=== PATIENT | female | born 1995 | race Caucasian/White ===

== ENCOUNTER 2016-08-11 15:40 | Emergency (ER) | payer OTHER ==
[2016-08-11] MEDS ORDERED: IBUPROFEN 600 MG TAB As Ordered ONE (18:19)
--- NOTE | 2016-08-11 19:49 | EDDOCDS ---
Nurse's Notes [facility] Name: Makenna Landno Age: 20 yrs Sex: Female : 1995 Arrival Date: 08/11/2016 Time: 15:40 Bed PR Private MD: Savita Frazier [facility] Diagnosis: Fever, unspecified;Acute pharyngitis Presentation: 08/11 15:44 Presenting complaint: Patient states: sore throat and fever x 2 days. Adult Sepsis [facility] Screening: The patient does not have new or worsening altered mentation. Patient's respiratory rate is less than 22. Systolic blood pressure is greater than 100. Patient has a qSOFA score of 0- Negative Sepsis Screen. Suicide/Homicide risk assessment- the patient denies having any suicidal and/or homicidal ideations and does not present with any other emotional, behavioral or mental health complaints. Status: The patient is a dependent. Transition of care: patient was not received from another setting of care. 15:44 Acuity: HOLLIS Level 4 [facility] 15:44 Method Of Arrival: Walkin/Carried/Asstd [facility] Triage Assessment: 15:46 General: Appears uncomfortable, Behavior is appropriate for age, pleasant. Pain: [facility] Location: throat Pain currently is 4 out of 10 on a pain scale. Pt Declines HIV testing. Neurological: Level of Consciousness is awake, alert, Oriented to person, place, time. EENT: Reports pain when swallowing Pain is 4 out of 10 on a pain scale. Respiratory: Airway is patent Respiratory effort is even, unlabored, Respiratory pattern is regular, symmetrical. Derm: Skin is pink, warm & dry. Musculoskeletal: Reports generalized body aches. 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 Garcinia Cambogia 200-500 mcg-mg oral tab twice a day (Last dose: 08/11/2016 11:00) - PMHx: none; - PSHx: none; - Social history: Smoking status: Patient states was never smoker of tobacco. No barriers to communication noted, The patient speaks fluent Japanese. - Family history: Not pertinent. - : The pt / caregiver states he / she is not on anticoagulants. Home medication list is obtained from the patient. - Exposure Risk Screening:: None identified. Screenin:47 Screening information is obtained from the patient. Fall risk: No risks identified. jo3 Assistance ADL's: requires no assistance with activities of daily living. Abuse/DV Screen: The patient / caregiver reports he/she is: not in a situation that causes fear, pain or injury. Nutritional screening: No deficits noted. Advance Directives: There is no active DNR order. home support is adequate. Assessment: 18:25 Adult Sepsis Screening: The patient does not have new or worsening altered mentation. dsf Patient's respiratory rate is less than 22. Systolic blood pressure is greater than 100. Patient has a qSOFA score of 0- Negative Sepsis Screen. General: Appears in no apparent distress, Behavior is appropriate for age. Pain: Location: throat. Neurological: Level of Consciousness is awake, alert. Cardiovascular: Capillary refill < 3 seconds. Respiratory: Airway is patent Respiratory effort is even, unlabored, Respiratory pattern is regular, symmetrical. Derm: Skin is pink, warm & dry. 19:47 General: Appears in no apparent distress, comfortable, Behavior is appropriate for age, jo3 cooperative. Neurological: Level of Consciousness is awake, alert, Oriented to person, place, time. Respiratory: No deficits noted. Airway is patent Respiratory effort is even, unlabored. Derm: Skin is pink, warm & dry. Vital Signs: 15:42 BP 108 / 71; Pulse 115; Resp 18 S; Temp 98.1(O); Pulse Ox 97% on R/A; Weight 68.04 kg gr2 (R); Height 5 ft. 4 in. (162.56 cm) (R); Pain 4/10; 18:28 BP 123 / 67; Pulse 113; Resp 18; Temp 100.4(TE); Pulse Ox 99% on R/A; Pain 0/10; mdr 19:42 BP 112 / 73; Pulse 93; Resp 18; Temp 97.8(TE); Pulse Ox 98% on R/A; Pain 0/10; mdr 15:42 Body Mass Index 25.75 (68.04 kg, 162.56 cm) gr2 Vitals: 15:42 Log In Time: August 11, 2016 at 15:42. gr2 16:41 Strep Screen is obtained and tested: Negative, a GATSNEG culture is ordered in [facility] and sent. ED Course: 15:42 Patient visited by Luis Enrique Wynne. gr2 15:42 [facility] is Private Physician. gr2 15:42 Patient moved to Waiting gr2 15:43 Patient visited by Luis Enrique Wynne. gr2 15:43 Patient moved to Pre RCE gr2 15:45 Triage Initiated kpj 17:43 Patient moved to Triage 3 mdr 18:03 [facility] ck7 18:03 Maryanne Hampton MD is Attending Physician. ck7 18:03 Patient visited by Eloy Thomas RPA-C. ck7 18:16 Patient moved to PR2 / dsf 18:25 -Influenza A&B Rapid Antigen - Nose Sent. dsf 18:26 Patient visited by Andreea Perez RN. dsf 18:28 Patient visited by Cornelius Sarkar PCA. mdr 19:00 Patient visited by Eloy Thomas RPA-C. ck7 19:02 [facility] Payment Agreement was scanned into [employer] and attached to record. gjb 19:33 Patient visited by Eloy Thomas RPA-C. ck7 19:42 [facility] is Referral Physician. ck7 19:43 Patient visited by Cornelius Sarkar PCA. mdr 19:47 The patient / caregiver is instructed regarding the plan of care and ED course. jo3 19:47 No IV's were initiated during this patient's visit. No procedures done that require jo3 assistance. Administered Medications: 18:25 Drug: Ibuprofen 600 mg [ibuprofen 600 mg tablet (1 tabs)] Route: PO; dsf Order Results: Lab Order: -Influenza A&B Rapid Antigen - Nose; SPEC'M 08/11/16 18:23 Test: INFLUENZA A RAPID SCR by ICA; Value: INFLUENZA A RESULTS NEGATIVE; Status: F Test: INFLUENZA A RAPID SCR by ICA; Value: Comments:; Status: F Test: INFLUENZA B RAPID SCR by ICA; Value: INFLUENZA B RESULTS NEGATIVE; Status: F Test Note: ; The Influenza test is a direct rapid immunoassay for the qualitative detection of Influenza viral antigen. Cell culture (Viral Culture) testing should be considered to confirm NEGATIVE results and to assist in detecting other viruses that can provide similar clinical symptoms. Please contact the lab within 24 hours ([phone]) if confirmatory testing is desired. Outcome: 19:42 Discharge ordered by Provider. ck7 19:47 Discharge Assessment: Patient awake, alert and oriented x 3. No cognitive and/or jo3 functional deficits noted. Patient verbalized understanding of disposition instructions. patient administered narcotics - no. The following High Risk Discharge criteria are identified: None. Discharged to home ambulatory, with significant other. Condition: stable Condition: improved. Discharge instructions given to patient, Instructed on discharge instructions, follow up and referral plans. medication usage, Demonstrated understanding of instructions, medications, Pt was receptive of discharge instructions/ teaching. Work note provided to patient. No special radiology studies were completed. Property sent home with patient. 19:49 Patient left the ED. jo3 Signatures: Heather Jha, RN RN Shellie Cuevas,RN RN jo3 Andreea Perez,RN RN dsf Eloy Thomas, RPA-C RPA-Cck7 Luis Enrique Wynne gr2 Cornelius Sarkar, MATT FUSION OPERATOR Lizbeth Zee MTDD
--- NOTE | 2016-08-11 19:49 | EDDOCDS ---
Physician Documentation [facility] Name: Makenna Landon Age: 20 yrs Sex: Female : 1995 Arrival Date: 08/11/2016 Time: 15:40 Bed PR Private MD: Savita Frazier, [facility] Disposition: 08/11/16 19:42 Discharged to Home/Self Care. Impression: Fever, unspecified, Acute pharyngitis. - Condition is Stable. - Discharge Instructions: Fever, Adult, Pharyngitis, Salt Water Gargle. - Prescriptions for Ibuprofen 600 mg Oral Tablet - take 1 tablet by ORAL route every 6 hours As needed take with food; 30 tablet. - Work Release Form - 2 day, Medication Reconciliation, Local Pharmacy Hours form. - Follow up: [facility] Savita Frazier; When: 2 - 3 days; Reason: Recheck today's complaints, Continuance of care. - Problem is new. - Symptoms have improved. - Notes: USE MOTRIN AND TYLENOL NEEDED FOR PAIN AND FEVER CONTROL, FOLLOW UP WITH YOUR DOCTOR IN 1-2 DAYS, RETURN TO THE ER IF THE SYMPTOMS WORSEN OR BECOME CONCERNING Historical: - Allergies: No known drug Allergies; - Home Meds: 1. Garcinia Cambogia 200-500 mcg-mg oral tab twice a day (Last dose: 08/11/2016 11:00) - PMHx: none; - PSHx: none; - Social history: Smoking status: Patient states was never smoker of tobacco. No barriers to communication noted, The patient speaks fluent Kenyan. - Family history: Not pertinent. - : The pt / caregiver states he / she is not on anticoagulants. Home medication list is obtained from the patient. - Exposure Risk Screening:: None identified. 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 4 in. (162.56 cm) (R); Pain 4/10; 18:28 BP 123 / 67; Pulse 113; Resp 18; Temp 100.4(TE); Pulse Ox 99% on R/A; Pain 0/10; mdr 19:42 BP 112 / 73; Pulse 93; Resp 18; Temp 97.8(TE); Pulse Ox 98% on R/A; Pain 0/10; mdr 15:42 Body Mass Index 25.75 (68.04 kg, 162.56 cm) gr2 MDM: 16:05 Strep Screen, Nursing ordered. dt4 16:42 GATS (NEGATIVE STREP SCREEN) Ordered. EDMS 18:10 Ibuprofen 600 mg PO once ordered. ck7 18:10 Obtain sample by nasopharyngeal swab ordered. ck7 18:10 Recheck Vital Signs, perform reassessment and enter into [employer] ordered. ck7 18:11 -Influenza A&B Rapid Antigen - Nose Ordered. EDMS 18:58 Financial registration complete. gjb 19:02 [facility] Payment Agreement was scanned into [employer] and attached to record. gjb 19:14 -Influenza A&B Rapid Antigen - Nose Reviewed. ck7 19:21 Recheck Vital Signs, perform reassessment and enter into [employer] ordered. ck7 Administered Medications: 18:25 Drug: Ibuprofen 600 mg [ibuprofen 600 mg tablet (1 tabs)] Route: PO; dsf Signatures: Dispatcher [employer] EDAR Heather Jha RN RN Shellie Cuevas,RN RN joEloy Escobar, RPA-C RPA-Cck7 Deepthi Moreau PA-C PALizbeth Oconnor Desiree RN dsf The chart was reviewed and I authenticate all verbal orders and agree with the evaluation and treatment provided.Attachments: 19:02 [facility] Payment Agreement [facility] MTDD
[2016-08-12] MEDS ORDERED: METAL LOCK LOOP XX ONE ×2 (05:07→05:53)
--- NOTE | 2016-08-13 20:50 | EDDOCDS ---
Physician Documentation [facility] Name: Makenna Landon Age: 20 yrs Sex: Female : 1995 Arrival Date: 08/11/2016 Time: 15:40 Bed PR Private MD: Savita Frazier, [facility] Disposition: 08/11/16 19:42 Discharged to Home/Self Care. Impression: Fever, unspecified, Acute pharyngitis. - Condition is Stable. - Discharge Instructions: Fever, Adult, Pharyngitis, Salt Water Gargle. - Prescriptions for Ibuprofen 600 mg Oral Tablet - take 1 tablet by ORAL route every 6 hours As needed take with food; 30 tablet. - Work Release Form - 2 day, Medication Reconciliation, Local Pharmacy Hours form. - Follow up: [facility] Savita Frazier; When: 2 - 3 days; Reason: Recheck today's complaints, Continuance of care. - Problem is new. - Symptoms have improved. - Notes: USE MOTRIN AND TYLENOL NEEDED FOR PAIN AND FEVER CONTROL, FOLLOW UP WITH YOUR DOCTOR IN 1-2 DAYS, RETURN TO THE ER IF THE SYMPTOMS WORSEN OR BECOME CONCERNING Historical: - Allergies: No known drug Allergies; - Home Meds: 1. Garcinia Cambogia 200-500 mcg-mg oral tab twice a day (Last dose: 08/11/2016 11:00) - PMHx: none; - PSHx: none; - Social history: Smoking status: Patient states was never smoker of tobacco. No barriers to communication noted, The patient speaks fluent Montserratian. - Family history: Not pertinent. - : The pt / caregiver states he / she is not on anticoagulants. Home medication list is obtained from the patient. - Exposure Risk Screening:: None identified. 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 4 in. (162.56 cm) (R); Pain 4/10; 18:28 BP 123 / 67; Pulse 113; Resp 18; Temp 100.4(TE); Pulse Ox 99% on R/A; Pain 0/10; mdr 19:42 BP 112 / 73; Pulse 93; Resp 18; Temp 97.8(TE); Pulse Ox 98% on R/A; Pain 0/10; mdr 15:42 Body Mass Index 25.75 (68.04 kg, 162.56 cm) gr2 MDM: 16:05 Strep Screen, Nursing ordered. dt4 16:42 GATS (NEGATIVE STREP SCREEN) Ordered. EDMS 18:10 Ibuprofen 600 mg PO once ordered. ck7 18:10 Obtain sample by nasopharyngeal swab ordered. ck7 18:10 Recheck Vital Signs, perform reassessment and enter into MedHost ordered. ck7 18:11 -Influenza A&B Rapid Antigen - Nose Ordered. EDMS 18:58 Financial registration complete. [facility] : [facility] Payment Agreement was scanned into [employer] and attached to record. gjb 19:14 -Influenza A&B Rapid Antigen - Nose Reviewed. ck7 19:21 Recheck Vital Signs, perform reassessment and enter into MedHost ordered. ck7 08/12 09:51 T-Sheet-- Draft Copy was scanned into [employer] and attached to record. gb Administered Medications: 08/11 18:25 Drug: Ibuprofen 600 mg [ibuprofen 600 mg tablet (1 tabs)] Route: PO; dsf Signatures: Dispatcher MedHost EDHeather Yañez, ORIN RN Na Lau, Tonny Reg Shellie Reece RN RN jo3 Kwaczala, Christopher, RPA-C RPA-Deepthi Cote PA-C PAUziel dt4 Lizbeth Vega Andreea Gonzalez RN dsf The chart was reviewed and I authenticate all verbal orders and agree with the evaluation and treatment provided.Attachments: : [facility] Payment Agreement [facility] 08/12 09:51 T-Sheet-- Draft Copy gb Chart Complete MTDD
--- NOTE | 2016-08-13 20:50 | EDDOCDS ---
Nurse's Notes [facility] Name: Makenna Landon Age: 20 yrs Sex: Female : 1995 Arrival Date: 08/11/2016 Time: 15:40 Bed PR Private MD: Savita Frazier [facility] Diagnosis: Fever, unspecified;Acute pharyngitis Presentation: 08/11 15:44 Presenting complaint: Patient states: sore throat and fever x 2 days. Adult Sepsis [facility] Screening: The patient does not have new or worsening altered mentation. Patient's respiratory rate is less than 22. Systolic blood pressure is greater than 100. Patient has a qSOFA score of 0- Negative Sepsis Screen. Suicide/Homicide risk assessment- the patient denies having any suicidal and/or homicidal ideations and does not present with any other emotional, behavioral or mental health complaints. Status: The patient is a dependent. Transition of care: patient was not received from another setting of care. 15:44 Acuity: HOLLIS Level 4 [facility] 15:44 Method Of Arrival: Walkin/Carried/Asstd [facility] Triage Assessment: 15:46 General: Appears uncomfortable, Behavior is appropriate for age, pleasant. Pain: [facility] Location: throat Pain currently is 4 out of 10 on a pain scale. Pt Declines HIV testing. Neurological: Level of Consciousness is awake, alert, Oriented to person, place, time. EENT: Reports pain when swallowing Pain is 4 out of 10 on a pain scale. Respiratory: Airway is patent Respiratory effort is even, unlabored, Respiratory pattern is regular, symmetrical. Derm: Skin is pink, warm & dry. Musculoskeletal: Reports generalized body aches. 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 Garcinia Cambogia 200-500 mcg-mg oral tab twice a day (Last dose: 08/11/2016 11:00) - PMHx: none; - PSHx: none; - Social history: Smoking status: Patient states was never smoker of tobacco. No barriers to communication noted, The patient speaks fluent Azerbaijani. - Family history: Not pertinent. - : The pt / caregiver states he / she is not on anticoagulants. Home medication list is obtained from the patient. - Exposure Risk Screening:: None identified. Screenin:47 Screening information is obtained from the patient. Fall risk: No risks identified. jo3 Assistance ADL's: requires no assistance with activities of daily living. Abuse/DV Screen: The patient / caregiver reports he/she is: not in a situation that causes fear, pain or injury. Nutritional screening: No deficits noted. Advance Directives: There is no active DNR order. home support is adequate. Assessment: 18:25 Adult Sepsis Screening: The patient does not have new or worsening altered mentation. dsf Patient's respiratory rate is less than 22. Systolic blood pressure is greater than 100. Patient has a qSOFA score of 0- Negative Sepsis Screen. General: Appears in no apparent distress, Behavior is appropriate for age. Pain: Location: throat. Neurological: Level of Consciousness is awake, alert. Cardiovascular: Capillary refill < 3 seconds. Respiratory: Airway is patent Respiratory effort is even, unlabored, Respiratory pattern is regular, symmetrical. Derm: Skin is pink, warm & dry. 19:47 General: Appears in no apparent distress, comfortable, Behavior is appropriate for age, jo3 cooperative. Neurological: Level of Consciousness is awake, alert, Oriented to person, place, time. Respiratory: No deficits noted. Airway is patent Respiratory effort is even, unlabored. Derm: Skin is pink, warm & dry. Vital Signs: 15:42 BP 108 / 71; Pulse 115; Resp 18 S; Temp 98.1(O); Pulse Ox 97% on R/A; Weight 68.04 kg gr2 (R); Height 5 ft. 4 in. (162.56 cm) (R); Pain 4/10; 18:28 BP 123 / 67; Pulse 113; Resp 18; Temp 100.4(TE); Pulse Ox 99% on R/A; Pain 0/10; mdr 19:42 BP 112 / 73; Pulse 93; Resp 18; Temp 97.8(TE); Pulse Ox 98% on R/A; Pain 0/10; mdr 15:42 Body Mass Index 25.75 (68.04 kg, 162.56 cm) gr2 Vitals: 15:42 Log In Time: August 11, 2016 at 15:42. gr2 16:41 Strep Screen is obtained and tested: Negative, a GATSNEG culture is ordered in [facility] and sent. ED Course: 15:42 Patient visited by Luis Enrique Wynne. gr2 15:42 [facility] is Private Physician. gr2 15:42 Patient moved to Waiting gr2 15:43 Patient visited by Luis Enrique Wynne. gr2 15:43 Patient moved to Pre RCE gr2 15:45 Triage Initiated kpj 17:43 Patient moved to Triage 3 mdr 18:03 [facility] ck7 18:03 Maryanne Hampton MD is Attending Physician. ck7 18:03 Patient visited by Eloy Thomas RPA-C. ck7 18:16 Patient moved to PR2 / 26 dsf 18:25 -Influenza A&B Rapid Antigen - Nose Sent. dsf 18:26 Patient visited by Andreea Perez RN. dsf 18:28 Patient visited by Cornelius Sarkar PCA. mdr 19:00 Patient visited by Eloy Thomas RPA-C. ck7 19:02 [facility] Payment Agreement was scanned into [employer] and attached to record. gjb 19:33 Patient visited by Eloy Thomas RPA-C. ck7 19:42 [facility] is Referral Physician. ck7 19:43 Patient visited by Cornelius Sarkar PCA. mdr 19:47 The patient / caregiver is instructed regarding the plan of care and ED course. jo3 19:47 No IV's were initiated during this patient's visit. No procedures done that require jo3 assistance. 08/12 09:51 T-Sheet-- Draft Copy was scanned into [employer] and attached to record. gb Administered Medications: 08/11 18:25 Drug: Ibuprofen 600 mg [ibuprofen 600 mg tablet (1 tabs)] Route: PO; dsf Order Results: Lab Order: GATS (NEGATIVE STREP SCREEN); SPEC'M 08/11/16 16:35 Test: GATS CULTURE (NEG STREP SCR); Value: GATS RESULT NEGATIVE FOR STREP PYOGENES (GROUP A); Status: F Test: GATS CULTURE (NEG STREP SCR); Value: <EXTERNAL COMMENT eCWMed> FULL REPORT IN LAB NOTES (eCW and Medent).; Status: F Test: GATS CULTURE (NEG STREP SCR); Value: ORGANISM 1: STREP AGALACTIAE GROUP B; Status: F Test: GATS CULTURE (NEG STREP SCR); Value: STREP AGALACTIAE GROUP B; Status: F Test: GATS CULTURE (NEG STREP SCR); Value: QUANTITY OF GROWTH MODERATE; Status: F Lab Order: -Influenza A&B Rapid Antigen - Nose; SPEC'M 08/11/16 18:23 Test: INFLUENZA A RAPID SCR by ICA; Value: INFLUENZA A RESULTS NEGATIVE; Status: F Test: INFLUENZA A RAPID SCR by ICA; Value: Comments:; Status: F Test: INFLUENZA B RAPID SCR by ICA; Value: INFLUENZA B RESULTS NEGATIVE; Status: F Test Note: ; The Influenza test is a direct rapid immunoassay for the qualitative detection of Influenza viral antigen. Cell culture (Viral Culture) testing should be considered to confirm NEGATIVE results and to assist in detecting other viruses that can provide similar clinical symptoms. Please contact the lab within 24 hours ([phone]) if confirmatory testing is desired. Outcome: 19:42 Discharge ordered by Provider. ck7 19:47 Discharge Assessment: Patient awake, alert and oriented x 3. No cognitive and/or jo3 functional deficits noted. Patient verbalized understanding of disposition instructions. patient administered narcotics - no. The following High Risk Discharge criteria are identified: None. Discharged to home ambulatory, with significant other. Condition: stable Condition: improved. Discharge instructions given to patient, Instructed on discharge instructions, follow up and referral plans. medication usage, Demonstrated understanding of instructions, medications, Pt was receptive of discharge instructions/ teaching. Work note provided to patient. No special radiology studies were completed. Property sent home with patient. 19:49 Patient left the ED. jo3 Signatures: Heather Jha, ORIN RN Na Lau, Reg Reg Shellie Reece RN RN Andreea Lopes,RN RN Eloy Pacheco, RPA-C RPA-Cck7 Luis Enrique Wynne2 Cornelius Sarkar, MATT PSYCHOLOGIST [facility]IVATE PRACTICE Lizbeth Zee Chart Complete MTDD
--- NOTE | 2016-08-13 20:50 | EDDOCDS ---
Physician Documentation [facility] Name: Makenna Landon Age: 20 yrs Sex: Female : 1995 Arrival Date: 08/11/2016 Time: 15:40 Bed PR Private MD: Savita Frazier, [facility] Disposition: 08/11/16 19:42 Discharged to Home/Self Care. Impression: Fever, unspecified, Acute pharyngitis. - Condition is Stable. - Discharge Instructions: Fever, Adult, Pharyngitis, Salt Water Gargle. - Prescriptions for Ibuprofen 600 mg Oral Tablet - take 1 tablet by ORAL route every 6 hours As needed take with food; 30 tablet. - Work Release Form - 2 day, Medication Reconciliation, Local Pharmacy Hours form. - Follow up: [facility] Savita Frazier; When: 2 - 3 days; Reason: Recheck today's complaints, Continuance of care. - Problem is new. - Symptoms have improved. - Notes: USE MOTRIN AND TYLENOL NEEDED FOR PAIN AND FEVER CONTROL, FOLLOW UP WITH YOUR DOCTOR IN 1-2 DAYS, RETURN TO THE ER IF THE SYMPTOMS WORSEN OR BECOME CONCERNING Historical: - Allergies: No known drug Allergies; - Home Meds: 1. Garcinia Cambogia 200-500 mcg-mg oral tab twice a day (Last dose: 08/11/2016 11:00) - PMHx: none; - PSHx: none; - Social history: Smoking status: Patient states was never smoker of tobacco. No barriers to communication noted, The patient speaks fluent Tongan. - Family history: Not pertinent. - : The pt / caregiver states he / she is not on anticoagulants. Home medication list is obtained from the patient. - Exposure Risk Screening:: None identified. 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 4 in. (162.56 cm) (R); Pain 4/10; 18:28 BP 123 / 67; Pulse 113; Resp 18; Temp 100.4(TE); Pulse Ox 99% on R/A; Pain 0/10; mdr 19:42 BP 112 / 73; Pulse 93; Resp 18; Temp 97.8(TE); Pulse Ox 98% on R/A; Pain 0/10; mdr 15:42 Body Mass Index 25.75 (68.04 kg, 162.56 cm) gr2 MDM: 16:05 Strep Screen, Nursing ordered. dt4 16:42 GATS (NEGATIVE STREP SCREEN) Ordered. EDMS 18:10 Ibuprofen 600 mg PO once ordered. ck7 18:10 Obtain sample by nasopharyngeal swab ordered. ck7 18:10 Recheck Vital Signs, perform reassessment and enter into MedHost ordered. ck7 18:11 -Influenza A&B Rapid Antigen - Nose Ordered. EDMS 18:58 Financial registration complete. [facility] : [facility] Payment Agreement was scanned into [employer] and attached to record. gjb 19:14 -Influenza A&B Rapid Antigen - Nose Reviewed. ck7 19:21 Recheck Vital Signs, perform reassessment and enter into MedHost ordered. ck7 08/12 09:51 T-Sheet-- Draft Copy was scanned into [employer] and attached to record. gb Administered Medications: 08/11 18:25 Drug: Ibuprofen 600 mg [ibuprofen 600 mg tablet (1 tabs)] Route: PO; dsf Signatures: Dispatcher MedHost EDHeather Yañez, ORIN RN Na Lau, Tonny Reg Shellie Reece RN RN jo3 Kwaczala, Christopher, RPA-C RPA-Deepthi Cote PA-C PAUziel dt4 Lizbeth Vega Andreea Gonzalez RN dsf The chart was reviewed and I authenticate all verbal orders and agree with the evaluation and treatment provided.Attachments: : [facility] Payment Agreement [facility] 08/12 09:51 T-Sheet-- Draft Copy gb Chart Complete MTDD
--- NOTE | 2016-08-14 17:36 | EDDOCDS ---
Physician Documentation [facility] Name: Makenna Landon Age: 20 yrs Sex: Female : 1995 Arrival Date: 08/11/2016 Time: 15:40 Bed PR Private MD: Savita Frazier, [facility] Disposition: 08/11/16 19:42 Discharged to Home/Self Care. Impression: Fever, unspecified, Acute pharyngitis. - Condition is Stable. - Discharge Instructions: Fever, Adult, Pharyngitis, Salt Water Gargle. - Prescriptions for Ibuprofen 600 mg Oral Tablet - take 1 tablet by ORAL route every 6 hours As needed take with food; 30 tablet. - Work Release Form - 2 day, Medication Reconciliation, Local Pharmacy Hours form. - Follow up: [facility] Savita Frazier; When: 2 - 3 days; Reason: Recheck today's complaints, Continuance of care. - Problem is new. - Symptoms have improved. - Notes: USE MOTRIN AND TYLENOL NEEDED FOR PAIN AND FEVER CONTROL, FOLLOW UP WITH YOUR DOCTOR IN 1-2 DAYS, RETURN TO THE ER IF THE SYMPTOMS WORSEN OR BECOME CONCERNING Historical: - Allergies: No known drug Allergies; - Home Meds: 1. Garcinia Cambogia 200-500 mcg-mg oral tab twice a day (Last dose: 08/11/2016 11:00) - PMHx: none; - PSHx: none; - Social history: Smoking status: Patient states was never smoker of tobacco. No barriers to communication noted, The patient speaks fluent Moroccan. - Family history: Not pertinent. - : The pt / caregiver states he / she is not on anticoagulants. Home medication list is obtained from the patient. - Exposure Risk Screening:: None identified. 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 4 in. (162.56 cm) (R); Pain 4/10; 18:28 BP 123 / 67; Pulse 113; Resp 18; Temp 100.4(TE); Pulse Ox 99% on R/A; Pain 0/10; mdr 19:42 BP 112 / 73; Pulse 93; Resp 18; Temp 97.8(TE); Pulse Ox 98% on R/A; Pain 0/10; mdr 15:42 Body Mass Index 25.75 (68.04 kg, 162.56 cm) gr2 MDM: 16:05 Strep Screen, Nursing ordered. dt4 16:42 GATS (NEGATIVE STREP SCREEN) Ordered. EDMS 18:10 Ibuprofen 600 mg PO once ordered. ck7 18:10 Obtain sample by nasopharyngeal swab ordered. ck7 18:10 Recheck Vital Signs, perform reassessment and enter into MedHost ordered. ck7 18:11 -Influenza A&B Rapid Antigen - Nose Ordered. EDMS 18:58 Financial registration complete. [facility] : [facility] Payment Agreement was scanned into [employer] and attached to record. gjb 19:14 -Influenza A&B Rapid Antigen - Nose Reviewed. ck7 19:21 Recheck Vital Signs, perform reassessment and enter into MedHost ordered. ck7 08/12 09:51 T-Sheet-- Draft Copy was scanned into [employer] and attached to record. gb Administered Medications: 08/11 18:25 Drug: Ibuprofen 600 mg [ibuprofen 600 mg tablet (1 tabs)] Route: PO; dsf Signatures: Dispatcher MedHost EDHeather Yañez, ORIN RN Na Lau, Tonny Reg Shellie Reece RN RN jo3 Kwaczala, Christopher, RPA-C RPA-Deepthi Cote PA-C PAUziel dt4 Lizbeth Vega Andreea Gonzalez RN dsf The chart was reviewed and I authenticate all verbal orders and agree with the evaluation and treatment provided.Attachments: : [facility] Payment Agreement [facility] 08/12 09:51 T-Sheet-- Draft Copy gb Chart Complete MTDD
--- NOTE | 2016-08-14 17:36 | EDDOCDS ---
Nurse's Notes [facility] Name: Makenna Landon Age: 20 yrs Sex: Female : 1995 Arrival Date: 08/11/2016 Time: 15:40 Bed PR Private MD: Savita Frazier [facility] Diagnosis: Fever, unspecified;Acute pharyngitis Presentation: 08/11 15:44 Presenting complaint: Patient states: sore throat and fever x 2 days. Adult Sepsis [facility] Screening: The patient does not have new or worsening altered mentation. Patient's respiratory rate is less than 22. Systolic blood pressure is greater than 100. Patient has a qSOFA score of 0- Negative Sepsis Screen. Suicide/Homicide risk assessment- the patient denies having any suicidal and/or homicidal ideations and does not present with any other emotional, behavioral or mental health complaints. Status: The patient is a dependent. Transition of care: patient was not received from another setting of care. 15:44 Acuity: HOLLIS Level 4 [facility] 15:44 Method Of Arrival: Walkin/Carried/Asstd [facility] Triage Assessment: 15:46 General: Appears uncomfortable, Behavior is appropriate for age, pleasant. Pain: [facility] Location: throat Pain currently is 4 out of 10 on a pain scale. Pt Declines HIV testing. Neurological: Level of Consciousness is awake, alert, Oriented to person, place, time. EENT: Reports pain when swallowing Pain is 4 out of 10 on a pain scale. Respiratory: Airway is patent Respiratory effort is even, unlabored, Respiratory pattern is regular, symmetrical. Derm: Skin is pink, warm & dry. Musculoskeletal: Reports generalized body aches. 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 Garcinia Cambogia 200-500 mcg-mg oral tab twice a day (Last dose: 08/11/2016 11:00) - PMHx: none; - PSHx: none; - Social history: Smoking status: Patient states was never smoker of tobacco. No barriers to communication noted, The patient speaks fluent [place]. - Family history: Not pertinent. - : The pt / caregiver states he / she is not on anticoagulants. Home medication list is obtained from the patient. - Exposure Risk Screening:: None identified. Screenin:47 Screening information is obtained from the patient. Fall risk: No risks identified. jo3 Assistance ADL's: requires no assistance with activities of daily living. Abuse/DV Screen: The patient / caregiver reports he/she is: not in a situation that causes fear, pain or injury. Nutritional screening: No deficits noted. Advance Directives: There is no active DNR order. home support is adequate. Assessment: 18:25 Adult Sepsis Screening: The patient does not have new or worsening altered mentation. dsf Patient's respiratory rate is less than 22. Systolic blood pressure is greater than 100. Patient has a qSOFA score of 0- Negative Sepsis Screen. General: Appears in no apparent distress, Behavior is appropriate for age. Pain: Location: throat. Neurological: Level of Consciousness is awake, alert. Cardiovascular: Capillary refill < 3 seconds. Respiratory: Airway is patent Respiratory effort is even, unlabored, Respiratory pattern is regular, symmetrical. Derm: Skin is pink, warm & dry. 19:47 General: Appears in no apparent distress, comfortable, Behavior is appropriate for age, jo3 cooperative. Neurological: Level of Consciousness is awake, alert, Oriented to person, place, time. Respiratory: No deficits noted. Airway is patent Respiratory effort is even, unlabored. Derm: Skin is pink, warm & dry. Vital Signs: 15:42 BP 108 / 71; Pulse 115; Resp 18 S; Temp 98.1(O); Pulse Ox 97% on R/A; Weight 68.04 kg gr2 (R); Height 5 ft. 4 in. (162.56 cm) (R); Pain 4/10; 18:28 BP 123 / 67; Pulse 113; Resp 18; Temp 100.4(TE); Pulse Ox 99% on R/A; Pain 0/10; mdr 19:42 BP 112 / 73; Pulse 93; Resp 18; Temp 97.8(TE); Pulse Ox 98% on R/A; Pain 0/10; mdr 15:42 Body Mass Index 25.75 (68.04 kg, 162.56 cm) gr2 Vitals: 15:42 Log In Time: August 11, 2016 at 15:42. gr2 16:41 Strep Screen is obtained and tested: Negative, a GATSNEG culture is ordered in [facility] and sent. ED Course: 15:42 Patient visited by Luis Enrique Wynne. gr2 15:42 [facility] is Private Physician. gr2 15:42 Patient moved to Waiting gr2 15:43 Patient visited by Luis Enrique Wynne. gr2 15:43 Patient moved to Pre RCE gr2 15:45 Triage Initiated kpj 17:43 Patient moved to Triage 3 mdr 18:03 [facility] ck7 18:03 Maryanne Hampton MD is Attending Physician. ck7 18:03 Patient visited by Eloy Thomas RPA-C. ck7 18:16 Patient moved to PR2 / 26 dsf 18:25 -Influenza A&B Rapid Antigen - Nose Sent. dsf 18:26 Patient visited by Andreea Perez RN. dsf 18:28 Patient visited by Cornelius Sarkar PCA. mdr 19:00 Patient visited by Eloy Thomas RPA-C. ck7 19:02 [facility] Payment Agreement was scanned into [employer] and attached to record. gjb 19:33 Patient visited by Eloy Thomas RPA-C. ck7 19:42 [facility] is Referral Physician. ck7 19:43 Patient visited by Cornelius Sarkar PCA. mdr 19:47 The patient / caregiver is instructed regarding the plan of care and ED course. jo3 19:47 No IV's were initiated during this patient's visit. No procedures done that require jo3 assistance. 08/12 09:51 T-Sheet-- Draft Copy was scanned into [employer] and attached to record. gb Administered Medications: 08/11 18:25 Drug: Ibuprofen 600 mg [ibuprofen 600 mg tablet (1 tabs)] Route: PO; dsf Order Results: Lab Order: GATS (NEGATIVE STREP SCREEN); SPEC'M 08/11/16 16:35 Test: GATS CULTURE (NEG STREP SCR); Value: GATS RESULT NEGATIVE FOR STREP PYOGENES (GROUP A); Status: F Test: GATS CULTURE (NEG STREP SCR); Value: <EXTERNAL COMMENT eCWMed> FULL REPORT IN LAB NOTES (eCW and Medent).; Status: F Test: GATS CULTURE (NEG STREP SCR); Value: ORGANISM 1: STREP AGALACTIAE GROUP B; Status: F Test: GATS CULTURE (NEG STREP SCR); Value: STREP AGALACTIAE GROUP B; Status: F Test: GATS CULTURE (NEG STREP SCR); Value: QUANTITY OF GROWTH MODERATE; Status: F Lab Order: -Influenza A&B Rapid Antigen - Nose; SPEC'M 08/11/16 18:23 Test: INFLUENZA A RAPID SCR by ICA; Value: INFLUENZA A RESULTS NEGATIVE; Status: F Test: INFLUENZA A RAPID SCR by ICA; Value: Comments:; Status: F Test: INFLUENZA B RAPID SCR by ICA; Value: INFLUENZA B RESULTS NEGATIVE; Status: F Test Note: ; The Influenza test is a direct rapid immunoassay for the qualitative detection of Influenza viral antigen. Cell culture (Viral Culture) testing should be considered to confirm NEGATIVE results and to assist in detecting other viruses that can provide similar clinical symptoms. Please contact the lab within 24 hours ([phone]) if confirmatory testing is desired. Outcome: 19:42 Discharge ordered by Provider. ck7 19:47 Discharge Assessment: Patient awake, alert and oriented x 3. No cognitive and/or jo3 functional deficits noted. Patient verbalized understanding of disposition instructions. patient administered narcotics - no. The following High Risk Discharge criteria are identified: None. Discharged to home ambulatory, with significant other. Condition: stable Condition: improved. Discharge instructions given to patient, Instructed on discharge instructions, follow up and referral plans. medication usage, Demonstrated understanding of instructions, medications, Pt was receptive of discharge instructions/ teaching. Work note provided to patient. No special radiology studies were completed. Property sent home with patient. 19:49 Patient left the ED. jo3 Signatures: Heather Jha, ORIN RN Na Lau, Reg Reg Shellie Reece RN RN Andreea Lopes,RN RN Eloy Pacheco, RPA-C RPA-Cck7 Luis Enrique Wynne2 Cornelius Sarkar, MATT CHIEF LIBRARIAN [facility] [employer] Lizbeth Zee Chart Complete MTDD
--- NOTE | 2016-08-14 17:36 | EDDOCDS ---
Physician Documentation [facility] Name: Makenna Landon Age: 20 yrs Sex: Female : 1995 Arrival Date: 08/11/2016 Time: 15:40 Bed PR Private MD: Savita Frazier, [facility] Disposition: 08/11/16 19:42 Discharged to Home/Self Care. Impression: Fever, unspecified, Acute pharyngitis. - Condition is Stable. - Discharge Instructions: Fever, Adult, Pharyngitis, Salt Water Gargle. - Prescriptions for Ibuprofen 600 mg Oral Tablet - take 1 tablet by ORAL route every 6 hours As needed take with food; 30 tablet. - Work Release Form - 2 day, Medication Reconciliation, Local Pharmacy Hours form. - Follow up: [facility] Savita Frazier; When: 2 - 3 days; Reason: Recheck today's complaints, Continuance of care. - Problem is new. - Symptoms have improved. - Notes: USE MOTRIN AND TYLENOL NEEDED FOR PAIN AND FEVER CONTROL, FOLLOW UP WITH YOUR DOCTOR IN 1-2 DAYS, RETURN TO THE ER IF THE SYMPTOMS WORSEN OR BECOME CONCERNING Historical: - Allergies: No known drug Allergies; - Home Meds: 1. Garcinia Cambogia 200-500 mcg-mg oral tab twice a day (Last dose: 08/11/2016 11:00) - PMHx: none; - PSHx: none; - Social history: Smoking status: Patient states was never smoker of tobacco. No barriers to communication noted, The patient speaks fluent Cypriot. - Family history: Not pertinent. - : The pt / caregiver states he / she is not on anticoagulants. Home medication list is obtained from the patient. - Exposure Risk Screening:: None identified. 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 Vital Signs: 15:42 BP 108 / 71; Pulse 115; Resp 18 S; Temp 98.1(O); Pulse Ox 97% on R/A; Weight 68.04 kg / gr2 150 lbs (R); Height 5 ft. 4 in. (162.56 cm) (R); Pain 4/10; 18:28 BP 123 / 67; Pulse 113; Resp 18; Temp 100.4(TE); Pulse Ox 99% on R/A; Pain 0/10; mdr 19:42 BP 112 / 73; Pulse 93; Resp 18; Temp 97.8(TE); Pulse Ox 98% on R/A; Pain 0/10; mdr 15:42 Body Mass Index 25.75 (68.04 kg, 162.56 cm) gr2 MDM: 16:05 Strep Screen, Nursing ordered. dt4 16:42 GATS (NEGATIVE STREP SCREEN) Ordered. EDMS 18:10 Ibuprofen 600 mg PO once ordered. ck7 18:10 Obtain sample by nasopharyngeal swab ordered. ck7 18:10 Recheck Vital Signs, perform reassessment and enter into Med[employer] ordered. ck7 18:11 -Influenza A&B Rapid Antigen - Nose Ordered. EDMS 18:58 Financial registration complete. [facility] : [facility] Payment Agreement was scanned into [employer] and attached to record. gjb 19:14 -Influenza A&B Rapid Antigen - Nose Reviewed. ck7 19:21 Recheck Vital Signs, perform reassessment and enter into MedHost ordered. ck7 08/12 09:51 T-Sheet-- Draft Copy was scanned into [employer] and attached to record. gb Administered Medications: 08/11 18:25 Drug: Ibuprofen 600 mg [ibuprofen 600 mg tablet (1 tabs)] Route: PO; dsf Signatures: Dispatcher MedHost EDHeather Yañez, ORIN RN Na Lau, Tonny Reg Shellie Reece RN RN jo3 Kwaczala, Christopher, RPA-C RPA-Deepthi Cote PA-C PAUziel dt4 Lizbeth Vega Andreea Gonzalez RN dsf The chart was reviewed and I authenticate all verbal orders and agree with the evaluation and treatment provided.Attachments: : [facility] Payment Agreement [facility] 08/12 09:51 T-Sheet-- Draft Copy gb Chart Complete MTDD
== END 2016-08-11 19:49 | disposition home or self-care (01) ==
LOC: M ED 15:40
DX: J02.9 Acute pharyngitis, unspecified (principal)

== ENCOUNTER 2016-08-13 11:01 | Emergency (ER) | payer OTHER ==
[2016-08-13] MEDS ORDERED: ceFAZolin 1GM INJ (J0690) As Ordered ONE (11:30)
[2016-08-13 11:52] LABS: BASO % 0.4 % (0.0-1.0); EOS # 0.1 K/mm3 (0.0-0.50); EOS % 0.8 % (0.0-3.0); LARGE UNSTAINED CELL # 0.2 K/mm3 (0.0-0.4); LARGE UNSTAINED CELL % 2.3 % (0.0-4.0); LYMPH # 1.2 K/mm3 (1.5-6.5); LYMPH % 11.1 % (24.0-44.0); MEAN CORPUSCULAR HEMOGLOBIN 29.6 pg (27.0-33.0); MEAN CORPUSCULAR HGB CONC 33.9 g/dl (32.0-36.5); MEAN CORPUSCULAR VOLUME 87.1 fl (80.0-96.0); MONO # 0.6 K/mm3 (0.0-0.8); MONO % 6.1 % (0.0-5.0); NEUTROPHILS # 8.3 K/mm3 (1.8-7.7); NEUTROPHILS % 79.3 % (36.0-66.0); PLATELET COUNT, AUTOMATED 272 k/mm3 (150-450); RED CELL DISTRIBUTION WIDTH 12.2 % (11.5-14.5); WHITE BLOOD COUNT 10.5 K/mm3 (4.0-10.0)
[2016-08-13 12:29] LABS: ANION GAP 8 MEQ/L (8-16); BLOOD UREA NITROGEN 8 MG/DL (7-18); CALCIUM LEVEL 8.9 MG/DL (8.5-10.1); CARBON DIOXIDE LEVEL 27 MEQ/L (21-32); CHLORIDE LEVEL 103 MEQ/L (98-107); CREATININE FOR GFR 0.58 MG/DL (0.55-1.02); GLUCOSE, FASTING 86 MG/DL (70-105); POTASSIUM SERUM 3.4 MEQ/L (3.5-5.1); SODIUM LEVEL 138 MEQ/L (136-145)
--- NOTE | 2016-08-13 13:02 | EDDOCDS ---
Physician Documentation [facility] Name: Makenna Landon Age: 20 yrs Sex: Female : 1995 Arrival Date: 08/13/2016 Time: 11:01 Bed I4 / M4 Private MD: NO PRIMARY PHYSICIAN, . Disposition: 08/13/16 12:52 Discharged to Home/Self Care. Impression: Acute tonsillitis - exudative. - Condition is Stable. - Discharge Instructions: Tonsillitis, [id number]. - Prescriptions for Keflex 500 mg Oral Capsule - take 1 capsule by ORAL route every 8 hours for 10 days; 29 capsule. - Medication Reconciliation, Local Pharmacy Hours form. - Follow up: Emergency Department; When: As needed; Reason: Trouble breathing, Worsening of conditions. - Problem is new. - Symptoms have improved. Historical: - Allergies: no known allergies; - Home Meds: 1. ibuprofen 800 mg Oral tab 3 times per day as needed - PMHx: none; - PSHx: none; - Social history: Smoking status: Patient states was never smoker of tobacco. No barriers to communication noted, The patient speaks fluent Malawian, Speaks appropriately for age. - Family history: Not pertinent. - : The pt / caregiver states he / she is not on anticoagulants. Home medication list is obtained from the patient. - Exposure Risk Screening:: None identified. 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 4 in. (162.56 cm); Pain 0/10; 12:58 BP 126 / 58; Pulse 104; Resp 18; Temp 99.3(TE); Pulse Ox 100% on R/A; Pain 7/10; jml1 11:03 Body Mass Index 25.75 (68.04 kg, 162.56 cm) dem1 MDM: 11:10 Strep Screen, Nursing ordered. ck1 11:20 IV Saline Lock ordered. ar2 11:20 NS 0.9% 1000 ml IV at bolus once ordered. ar2 11:20 ceFAZolin 1 grams IVPB once over 30 mins; dilute in 50mL of NS or D5W ordered. ar2 11:21 CBC with Diff Ordered. EDMS 11:21 MED Profile Ordered. EDMS 11:40 Financial registration complete. gb 12:15 T-Sheet-- Draft Copy was scanned into [employer] and attached to record. gb 12:51 CBC with Diff Reviewed. ar2 12:51 MED Profile Reviewed. ar2 Administered Medications: 11:40 Drug: NS 0.9% 1000 ml [sodium chloride 0.9 % injection solution] Route: IV; Rate: dls bolus; Site: right antecubital; 12:59 Follow up: IV Status: Completed infusion dls 11:40 Drug: ceFAZolin 1 grams [cefazolin 1 gram solution for injection] Route: IVPB; Infused dls Over: 30 mins; Site: right antecubital; 12:08 Follow up: IV Status: Completed infusion dls Signatures: Dispatcher [employer] EDMS Nancy Presley RN RN dls Na Singh, Reg Reg gb Burt Fierro RN RN mlb1 Kayley Joyce RN RN ck1 Joe Hendrix PA-C PAUziel ar2 The chart was reviewed and I authenticate all verbal orders and agree with the evaluation and treatment provided.Attachments: 12:15 T-Sheet-- Draft Copy gb MTDD
--- NOTE | 2016-08-13 13:02 | EDDOCDS ---
Nurse's Notes [facility] Name: Makenna Landon Age: 20 yrs Sex: Female : 1995 Arrival Date: 08/13/2016 Time: 11:01 Bed I4 / M4 Private MD: NO PRIMARY PHYSICIAN, . Diagnosis: Acute tonsillitis-exudative Presentation: 08/13 11:04 Presenting complaint: Patient states: Sore throat with swelling began Monday. Risk mlb1 factors: Stridor is not present. Drooling is not present. Shortness of breath is not present. Cellulitis is not present. Adult Sepsis Screening: The patient does not have new or worsening altered mentation. Patient's respiratory rate is less than 22. Systolic blood pressure is greater than 100. Patient has a qSOFA score of 0- Negative Sepsis Screen. Suicide/Homicide risk assessment- the patient denies having any suicidal and/or homicidal ideations and does not present with any other emotional, behavioral or mental health complaints. Status: The patient is a dependent. Transition of care: patient was not received from another setting of care. 11:04 Acuity: HOLLIS Level 4 mlb1 11:04 Method Of Arrival: Walkin/Carried/Asstd mlb1 Triage Assessment: 11:05 General: Appears in no apparent distress, Behavior is anxious, cooperative. Pain: mlb1 Location: left aspect of posterior pharynx and right aspect of posterior pharynx Pain currently is 7 out of 10 on a pain scale. HIV screening NA for this visit Offered previously. 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 ibuprofen 800 mg Oral tab 3 times per day as needed - PMHx: none; - PSHx: none; - Social history: Smoking status: Patient states was never smoker of tobacco. No barriers to communication noted, The patient speaks fluent [place] Islander, Speaks appropriately for age. - Family history: Not pertinent. - : The pt / caregiver states he / she is not on anticoagulants. Home medication list is obtained from the patient. - Exposure Risk Screening:: None identified. Screenin:14 Screening information is obtained from the patient. Fall risk: No risks identified. ck1 Assistance ADL's: requires no assistance with activities of daily living. Abuse/DV Screen: The patient / caregiver reports he/she is: not in a situation that causes fear, pain or injury. Nutritional screening: No deficits noted. Advance Directives: Currently, there is no health care proxy. home support is adequate. Assessment: 11:14 General: Appears in no apparent distress, comfortable, Behavior is appropriate for age, ck1 cooperative. EENT: Throat has patchy exudate has enlarged tonsils bilaterally with gag reflex present. Respiratory: Airway is patent Respiratory effort is unlabored, Respiratory pattern is regular, symmetrical. Derm: Skin is pink, warm & dry. 11:36 General: Appears in no apparent distress, comfortable, Behavior is appropriate for age, mk4 cooperative. EENT: Throat has patchy exudate has enlarged tonsils. Vital Signs: 11:03 BP 137 / 78; Pulse 101; Resp 18; Temp 98.0(O); Pulse Ox 100% on R/A; Weight 68.04 kg; dem1 Height 5 ft. 4 in. (162.56 cm); Pain 0/10; 12:58 BP 126 / 58; Pulse 104; Resp 18; Temp 99.3(TE); Pulse Ox 100% on R/A; Pain 7/10; jml1 11:03 Body Mass Index 25.75 (68.04 kg, 162.56 cm) [facility] Vitals: 11:03 Log In Time: August 13, 2016 at 11:00. dem1 11:14 Strep Screen is obtained and tested: Positive. ck1 ED Course: 11:02 Patient visited by Zachary Howe. dem1 11:02 Patient moved to Waiting dem1 11:03 NO PRIMARY PHYSICIAN, . is Private Physician. dem1 11:04 Patient moved to Pre RCE dem1 11:04 Triage Initiated mlb1 11:05 Joe Hendrix PA-C is PHCP. ar2 11:05 Maryanne Hampton MD is Attending Physician. ar2 11:06 Patient visited by Burt Fierro RN. mlb1 11:06 Patient moved to Triage 3 mlb1 11:07 Patient visited by Joe Hendrix PA-C. ar2 11:15 The patient / caregiver is instructed regarding the plan of care and ED course. ck1 11:15 No IV's were initiated during this patient's visit. No procedures done that require ck1 assistance. 11:22 Patient moved to I4 / M4 rs3 11:36 MED Profile Sent. mk4 11:36 CBC with Diff Sent. mk4 11:36 Inserted saline lock: 20 gauge in right antecubital area and blood collected. mk4 11:42 Patient visited by Renetta Andujar RN. mk4 12:15 T-Sheet-- Draft Copy was scanned into [employer] and attached to record. gb 12:18 Patient visited by Renetta Andujar RN. mk4 12:58 Patient visited by Evens Frost. jml1 13:00 Discontinued IV lock intact, bleeding controlled, pressure dressing applied, No dls redness/swelling at site. Administered Medications: 11:40 Drug: NS 0.9% 1000 ml [sodium chloride 0.9 % injection solution] Route: IV; Rate: dls bolus; Site: right antecubital; 12:59 Follow up: IV Status: Completed infusion dls 11:40 Drug: ceFAZolin 1 grams [cefazolin 1 gram solution for injection] Route: IVPB; Infused dls Over: 30 mins; Site: right antecubital; 12:08 Follow up: IV Status: Completed infusion dls Order Results: Lab Order: CBC with Diff; SPEC'M 08/13/16 11:34 Test: WHITE BLOOD COUNT; Value: 10.5; Range: 4.0-10.0; Abnormal: Above high normal; Units: K/mm3; Status: F Test: RED BLOOD COUNT; Value: 4.88; Range: 4.00-5.40; Units: M/mm3; Status: F Test: HEMOGLOBIN; Value: 14.4; Range: 12.0-16.0; Units: g/dl; Status: F Test: HEMATOCRIT; Value: 42.5; Range: 36.0-47.0; Units: %; Status: F Test: MEAN CORPUSCULAR VOLUME; Value: 87.1; Range: 80.0-96.0; Units: fl; Status: F Test: MEAN CORPUSCULAR HEMOGLOBIN; Value: 29.6; Range: 27.0-33.0; Units: pg; Status: F Test: MEAN CORPUSCULAR HGB CONC; Value: 33.9; Range: 32.0-36.5; Units: g/dl; Status: F Test: RED CELL DISTRIBUTION WIDTH; Value: 12.2; Range: 11.5-14.5; Units: %; Status: F Test: PLATELET COUNT, AUTOMATED; Value: 272; Range: 150-450; Units: k/mm3; Status: F Test: NEUTROPHILS %; Value: 79.3; Range: 36.0-66.0; Abnormal: Above high normal; Units: %; Status: F Test: LYMPH %; Value: 11.1; Range: 24.0-44.0; Abnormal: Below low normal; Units: %; Status: F Test: MONO %; Value: 6.1; Range: 0.0-5.0; Abnormal: Above high normal; Units: %; Status: F Test: EOS %; Value: 0.8; Range: 0.0-3.0; Units: %; Status: F Test: BASO %; Value: 0.4; Range: 0.0-1.0; Units: %; Status: F Test: LARGE UNSTAINED CELL %; Value: 2.3; Range: 0.0-4.0; Units: %; Status: F Test: NEUTROPHILS #; Value: 8.3; Range: 1.8-7.7; Abnormal: Above high normal; Units: K/mm3; Status: F Test: LYMPH #; Value: 1.2; Range: 1.5-6.5; Abnormal: Below low normal; Units: K/mm3; Status: F Test: MONO #; Value: 0.6; Range: 0.0-0.8; Units: K/mm3; Status: F Test: EOS #; Value: 0.1; Range: 0.0-0.50; Units: K/mm3; Status: F Test: BASO #; Value: 0.0; Range: 0.0-0.2; Units: K/mm3; Status: F Test: LARGE UNSTAINED CELL #; Value: 0.2; Range: 0.0-0.4; Units: K/mm3; Status: F Lab Order: MED Profile; SPEC'M 08/13/16 11:34 Test: GLUCOSE, FASTING; Value: 86; Range: 70-105; Units: MG/DL; Status: F Test: BLOOD UREA NITROGEN; Value: 8; Range: 7-18; Units: MG/DL; Status: F Test: CREATININE FOR GFR; Value: 0.58; Range: 0.55-1.02; Units: MG/DL; Status: F Test: SODIUM LEVEL; Value: 138; Range: 136-145; Units: MEQ/L; Status: F Test: POTASSIUM SERUM; Value: 3.4; Range: 3.5-5.1; Abnormal: Below low normal; Units: MEQ/L; Status: F Test: CHLORIDE LEVEL; Value: 103; Range: 98-107; Units: MEQ/L; Status: F Test: CARBON DIOXIDE LEVEL; Value: 27; Range: 21-32; Units: MEQ/L; Status: F Test: ANION GAP; Value: 8; Range: 8-16; Units: MEQ/L; Status: F Test: CALCIUM LEVEL; Value: 8.9; Range: 8.5-10.1; Units: MG/DL; Status: F Outcome: 12:52 Discharge ordered by Provider. ar2 13:00 Discharge Assessment: Patient awake, alert and oriented x 3. No cognitive and/or dls functional deficits noted. Patient verbalized understanding of disposition instructions. patient administered narcotics - no. The following High Risk Discharge criteria are identified: None. Discharged to home ambulatory, with significant other. Condition: stable. Discharge instructions given to patient, Instructed on discharge instructions, follow up and referral plans. medication usage, Demonstrated understanding of instructions, medications, Pt was receptive of discharge instructions/ teaching. Prescriptions given X 1. No special radiology studies were completed. Property sent home with patient. 13:02 Patient left the ED. dls Signatures: Nancy Presley RN RN Na Traore, Tonny Reg Burt Fierro RN RN mlb1 Kayley JoyceRN RN ck1 Joe Hendrix PA-C PA-C ar2 Gloria Ndiaye RN RN rs3 Evens Frost Demeishia dem1 King, Margaret, RN RN mk4 MTDD
--- NOTE | 2016-08-15 14:03 | EDDOCDS ---
Physician Documentation [facility] Name: Makenna Landon Age: 20 yrs Sex: Female : 1995 Arrival Date: 08/13/2016 Time: 11:01 Bed I4 / M4 Private MD: NO PRIMARY PHYSICIAN, . Disposition: 08/13/16 12:52 Discharged to Home/Self Care. Impression: Acute tonsillitis - exudative. - Condition is Stable. - Discharge Instructions: Tonsillitis, [id number]. - Prescriptions for Keflex 500 mg Oral Capsule - take 1 capsule by ORAL route every 8 hours for 10 days; 29 capsule. - Medication Reconciliation, Local Pharmacy Hours form. - Follow up: Emergency Department; When: As needed; Reason: Trouble breathing, Worsening of conditions. - Problem is new. - Symptoms have improved. Historical: - Allergies: no known allergies; - Home Meds: 1. ibuprofen 800 mg Oral tab 3 times per day as needed - PMHx: none; - PSHx: none; - Social history: Smoking status: Patient states was never smoker of tobacco. No barriers to communication noted, The patient speaks fluent [place], Speaks appropriately for age. - Family history: Not pertinent. - : The pt / caregiver states he / she is not on anticoagulants. Home medication list is obtained from the patient. - Exposure Risk Screening:: None identified. TRANSITION MGR: 08/13 11:06 LMP 07/31/2016 mlb1 Vital Signs: 11:03 BP 137 / 78; Pulse 101; Resp 18; Temp 98.0(O); Pulse Ox 100% on R/A; Weight 68.04 kg / dem1 150 lbs; Height 5 ft. 4 in. (162.56 cm); Pain 0/10; 12:58 BP 126 / 58; Pulse 104; Resp 18; Temp 99.3(TE); Pulse Ox 100% on R/A; Pain 7/10; jml1 11:03 Body Mass Index 25.75 (68.04 kg, 162.56 cm) dem1 MDM: 11:10 Strep Screen, Nursing ordered. ck1 11:20 IV Saline Lock ordered. ar2 11:20 NS 0.9% 1000 ml IV at bolus once ordered. ar2 11:20 ceFAZolin 1 grams IVPB once over 30 mins; dilute in 50mL of NS or D5W ordered. ar2 11:21 CBC with Diff Ordered. EDMS 11:21 MED Profile Ordered. EDMS 11:40 Financial registration complete. gb 12:15 T-Sheet-- Draft Copy was scanned into [employer] and attached to record. gb 12:51 CBC with Diff Reviewed. ar2 12:51 MED Profile Reviewed. ar2 15:46 T-Sheet-- Draft Copy was scanned into [employer] and attached to record. klr 16:53 [facility] Payment Agreement was scanned into [employer] and attached to record. gb Administered Medications: 11:40 Drug: NS 0.9% 1000 ml [sodium chloride 0.9 % injection solution] Route: IV; Rate: dls bolus; Site: right antecubital; 12:59 Follow up: IV Status: Completed infusion dls 11:40 Drug: ceFAZolin 1 grams [cefazolin 1 gram solution for injection] Route: IVPB; Infused dls Over: 30 mins; Site: right antecubital; 12:08 Follow up: IV Status: Completed infusion dls Signatures: Dispatcher MedHost EDNancy Lowry, RN RN dls Na Singh, Reg Reg gb Burt Fierro RN RN mlb1 Kayley JoyceRN RN ck1 Joe Hendrix PA-C PAUziel ar2 Yanna Ibanez The chart was reviewed and I authenticate all verbal orders and agree with the evaluation and treatment provided.Attachments: 15:46 T-Sheet-- Draft Copy klr 16:53 [facility] Payment Agreement gb Chart Complete MTDD
--- NOTE | 2016-08-15 14:03 | EDDOCDS ---
Nurse's Notes [facility] Name: Makenna Landon Age: 20 yrs Sex: Female : 1995 Arrival Date: 08/13/2016 Time: 11:01 Bed I4 / M4 Private MD: NO PRIMARY PHYSICIAN, . Diagnosis: Acute tonsillitis-exudative Presentation: 08/13 11:04 Presenting complaint: Patient states: Sore throat with swelling began Monday. Risk mlb1 factors: Stridor is not present. Drooling is not present. Shortness of breath is not present. Cellulitis is not present. Adult Sepsis Screening: The patient does not have new or worsening altered mentation. Patient's respiratory rate is less than 22. Systolic blood pressure is greater than 100. Patient has a qSOFA score of 0- Negative Sepsis Screen. Suicide/Homicide risk assessment- the patient denies having any suicidal and/or homicidal ideations and does not present with any other emotional, behavioral or mental health complaints. Status: The patient is a dependent. Transition of care: patient was not received from another setting of care. 11:04 Acuity: HOLLIS Level 4 mlb1 11:04 Method Of Arrival: Walkin/Carried/Asstd mlb1 Triage Assessment: 11:05 General: Appears in no apparent distress, Behavior is anxious, cooperative. Pain: mlb1 Location: left aspect of posterior pharynx and right aspect of posterior pharynx Pain currently is 7 out of 10 on a pain scale. HIV screening NA for this visit Offered previously. 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 ibuprofen 800 mg Oral tab 3 times per day as needed - PMHx: none; - PSHx: none; - Social history: Smoking status: Patient states was never smoker of tobacco. No barriers to communication noted, The patient speaks fluent Malawian, Speaks appropriately for age. - Family history: Not pertinent. - : The pt / caregiver states he / she is not on anticoagulants. Home medication list is obtained from the patient. - Exposure Risk Screening:: None identified. Screenin:14 Screening information is obtained from the patient. Fall risk: No risks identified. ck1 Assistance ADL's: requires no assistance with activities of daily living. Abuse/DV Screen: The patient / caregiver reports he/she is: not in a situation that causes fear, pain or injury. Nutritional screening: No deficits noted. Advance Directives: Currently, there is no health care proxy. home support is adequate. Assessment: 11:14 General: Appears in no apparent distress, comfortable, Behavior is appropriate for age, ck1 cooperative. EENT: Throat has patchy exudate has enlarged tonsils bilaterally with gag reflex present. Respiratory: Airway is patent Respiratory effort is unlabored, Respiratory pattern is regular, symmetrical. Derm: Skin is pink, warm & dry. 11:36 General: Appears in no apparent distress, comfortable, Behavior is appropriate for age, mk4 cooperative. EENT: Throat has patchy exudate has enlarged tonsils. Vital Signs: 11:03 BP 137 / 78; Pulse 101; Resp 18; Temp 98.0(O); Pulse Ox 100% on R/A; Weight 68.04 kg; dem1 Height 5 ft. 4 in. (162.56 cm); Pain 0/10; 12:58 BP 126 / 58; Pulse 104; Resp 18; Temp 99.3(TE); Pulse Ox 100% on R/A; Pain 7/10; jml1 11:03 Body Mass Index 25.75 (68.04 kg, 162.56 cm) [facility] Vitals: 11:03 Log In Time: August 13, 2016 at 11:00. dem1 11:14 Strep Screen is obtained and tested: Positive. ck1 ED Course: 11:02 Patient visited by Zachary Howe. dem1 11:02 Patient moved to Waiting dem1 11:03 NO PRIMARY PHYSICIAN, . is Private Physician. dem1 11:04 Patient moved to Pre RCE dem1 11:04 Triage Initiated mlb1 11:05 Joe Hendrix PA-C is PHCP. ar2 11:05 Maryanne Hampton MD is Attending Physician. ar2 11:06 Patient visited by Burt Fierro RN. mlb1 11:06 Patient moved to Triage 3 mlb1 11:07 Patient visited by Joe Hendrix PA-C. ar2 11:15 The patient / caregiver is instructed regarding the plan of care and ED course. ck1 11:15 No IV's were initiated during this patient's visit. No procedures done that require ck1 assistance. 11:22 Patient moved to I4 / rs3 11:36 MED Profile Sent. mk4 11:36 CBC with Diff Sent. mk4 11:36 Inserted saline lock: 20 gauge in right antecubital area and blood collected. mk4 11:42 Patient visited by Renetta Andujar RN. mk4 12:15 T-Sheet-- Draft Copy was scanned into [employer] and attached to record. gb 12:18 Patient visited by Renetta Andujar RN. mk4 12:58 Patient visited by Evens Frost. jml1 13:00 Discontinued IV lock intact, bleeding controlled, pressure dressing applied, No dls redness/swelling at site. 15:46 T-Sheet-- Draft Copy was scanned into [employer] and attached to record. klr 16:53 [facility] Payment Agreement was scanned into [employer] and attached to record. gb Administered Medications: 11:40 Drug: NS 0.9% 1000 ml [sodium chloride 0.9 % injection solution] Route: IV; Rate: dls bolus; Site: right antecubital; 12:59 Follow up: IV Status: Completed infusion dls 11:40 Drug: ceFAZolin 1 grams [cefazolin 1 gram solution for injection] Route: IVPB; Infused dls Over: 30 mins; Site: right antecubital; 12:08 Follow up: IV Status: Completed infusion dls Order Results: Lab Order: CBC with Diff; SPEC'M 08/13/16 11:34 Test: WHITE BLOOD COUNT; Value: 10.5; Range: 4.0-10.0; Abnormal: Above high normal; Units: K/mm3; Status: F Test: RED BLOOD COUNT; Value: 4.88; Range: 4.00-5.40; Units: M/mm3; Status: F Test: HEMOGLOBIN; Value: 14.4; Range: 12.0-16.0; Units: g/dl; Status: F Test: HEMATOCRIT; Value: 42.5; Range: 36.0-47.0; Units: %; Status: F Test: MEAN CORPUSCULAR VOLUME; Value: 87.1; Range: 80.0-96.0; Units: fl; Status: F Test: MEAN CORPUSCULAR HEMOGLOBIN; Value: 29.6; Range: 27.0-33.0; Units: pg; Status: F Test: MEAN CORPUSCULAR HGB CONC; Value: 33.9; Range: 32.0-36.5; Units: g/dl; Status: F Test: RED CELL DISTRIBUTION WIDTH; Value: 12.2; Range: 11.5-14.5; Units: %; Status: F Test: PLATELET COUNT, AUTOMATED; Value: 272; Range: 150-450; Units: k/mm3; Status: F Test: NEUTROPHILS %; Value: 79.3; Range: 36.0-66.0; Abnormal: Above high normal; Units: %; Status: F Test: LYMPH %; Value: 11.1; Range: 24.0-44.0; Abnormal: Below low normal; Units: %; Status: F Test: MONO %; Value: 6.1; Range: 0.0-5.0; Abnormal: Above high normal; Units: %; Status: F Test: EOS %; Value: 0.8; Range: 0.0-3.0; Units: %; Status: F Test: BASO %; Value: 0.4; Range: 0.0-1.0; Units: %; Status: F Test: LARGE UNSTAINED CELL %; Value: 2.3; Range: 0.0-4.0; Units: %; Status: F Test: NEUTROPHILS #; Value: 8.3; Range: 1.8-7.7; Abnormal: Above high normal; Units: K/mm3; Status: F Test: LYMPH #; Value: 1.2; Range: 1.5-6.5; Abnormal: Below low normal; Units: K/mm3; Status: F Test: MONO #; Value: 0.6; Range: 0.0-0.8; Units: K/mm3; Status: F Test: EOS #; Value: 0.1; Range: 0.0-0.50; Units: K/mm3; Status: F Test: BASO #; Value: 0.0; Range: 0.0-0.2; Units: K/mm3; Status: F Test: LARGE UNSTAINED CELL #; Value: 0.2; Range: 0.0-0.4; Units: K/mm3; Status: F Lab Order: MED Profile; SPEC'M 08/13/16 11:34 Test: GLUCOSE, FASTING; Value: 86; Range: 70-105; Units: MG/DL; Status: F Test: BLOOD UREA NITROGEN; Value: 8; Range: 7-18; Units: MG/DL; Status: F Test: CREATININE FOR GFR; Value: 0.58; Range: 0.55-1.02; Units: MG/DL; Status: F Test: SODIUM LEVEL; Value: 138; Range: 136-145; Units: MEQ/L; Status: F Test: POTASSIUM SERUM; Value: 3.4; Range: 3.5-5.1; Abnormal: Below low normal; Units: MEQ/L; Status: F Test: CHLORIDE LEVEL; Value: 103; Range: 98-107; Units: MEQ/L; Status: F Test: CARBON DIOXIDE LEVEL; Value: 27; Range: 21-32; Units: MEQ/L; Status: F Test: ANION GAP; Value: 8; Range: 8-16; Units: MEQ/L; Status: F Test: CALCIUM LEVEL; Value: 8.9; Range: 8.5-10.1; Units: MG/DL; Status: F Outcome: 12:52 Discharge ordered by Provider. ar2 13:00 Discharge Assessment: Patient awake, alert and oriented x 3. No cognitive and/or dls functional deficits noted. Patient verbalized understanding of disposition instructions. patient administered narcotics - no. The following High Risk Discharge criteria are identified: None. Discharged to home ambulatory, with significant other. Condition: stable. Discharge instructions given to patient, Instructed on discharge instructions, follow up and referral plans. medication usage, Demonstrated understanding of instructions, medications, Pt was receptive of discharge instructions/ teaching. Prescriptions given X 1. No special radiology studies were completed. Property sent home with patient. 13:02 Patient left the ED. dls Signatures: Nancy Presley, RN RN dls Na Singh, Reg Reg gb Burt Fierro RN RN mlb1 Kayley JoyceRN RN ck1 Joe Hendrix PA-C PA-C ar2 Gloria Ndiaye RN RN rs3 Evens Frostl1 Zachary Howe1 Renetta Andujar RN RN mk4 Yanna Ibanez Chart Complete MTDD
--- NOTE | 2016-08-15 14:03 | EDDOCDS ---
Physician Documentation [facility] Name: Makenna Landon Age: 20 yrs Sex: Female : 1995 Arrival Date: 08/13/2016 Time: 11:01 Bed I4 / M4 Private MD: NO PRIMARY PHYSICIAN, . Disposition: 08/13/16 12:52 Discharged to Home/Self Care. Impression: Acute tonsillitis - exudative. - Condition is Stable. - Discharge Instructions: Tonsillitis, [id number]. - Prescriptions for Keflex 500 mg Oral Capsule - take 1 capsule by ORAL route every 8 hours for 10 days; 29 capsule. - Medication Reconciliation, Local Pharmacy Hours form. - Follow up: Emergency Department; When: As needed; Reason: Trouble breathing, Worsening of conditions. - Problem is new. - Symptoms have improved. Historical: - Allergies: no known allergies; - Home Meds: 1. ibuprofen 800 mg Oral tab 3 times per day as needed - PMHx: none; - PSHx: none; - Social history: Smoking status: Patient states was never smoker of tobacco. No barriers to communication noted, The patient speaks fluent [place], Speaks appropriately for age. - Family history: Not pertinent. - : The pt / caregiver states he / she is not on anticoagulants. Home medication list is obtained from the patient. - Exposure Risk Screening:: None identified. ARTISTS' MODEL: 08/13 11:06 LMP 07/31/2016 mlb1 Vital Signs: 11:03 BP 137 / 78; Pulse 101; Resp 18; Temp 98.0(O); Pulse Ox 100% on R/A; Weight 68.04 kg / dem1 150 lbs; Height 5 ft. 4 in. (162.56 cm); Pain 0/10; 12:58 BP 126 / 58; Pulse 104; Resp 18; Temp 99.3(TE); Pulse Ox 100% on R/A; Pain 7/10; jml1 11:03 Body Mass Index 25.75 (68.04 kg, 162.56 cm) dem1 MDM: 11:10 Strep Screen, Nursing ordered. ck1 11:20 IV Saline Lock ordered. ar2 11:20 NS 0.9% 1000 ml IV at bolus once ordered. ar2 11:20 ceFAZolin 1 grams IVPB once over 30 mins; dilute in 50mL of NS or D5W ordered. ar2 11:21 CBC with Diff Ordered. EDMS 11:21 MED Profile Ordered. EDMS 11:40 Financial registration complete. gb 12:15 T-Sheet-- Draft Copy was scanned into [employer] and attached to record. gb 12:51 CBC with Diff Reviewed. ar2 12:51 MED Profile Reviewed. ar2 15:46 T-Sheet-- Draft Copy was scanned into [employer] and attached to record. klr 16:53 [facility] Payment Agreement was scanned into [employer] and attached to record. gb Administered Medications: 11:40 Drug: NS 0.9% 1000 ml [sodium chloride 0.9 % injection solution] Route: IV; Rate: dls bolus; Site: right antecubital; 12:59 Follow up: IV Status: Completed infusion dls 11:40 Drug: ceFAZolin 1 grams [cefazolin 1 gram solution for injection] Route: IVPB; Infused dls Over: 30 mins; Site: right antecubital; 12:08 Follow up: IV Status: Completed infusion dls Signatures: Dispatcher [employer] EDNancy Lowry, RN RN dls Na Singh, Reg Reg gb Burt Fierro RN RN mlb1 Kayley JoyceRN RN ck1 Joe Hendrix PA-C PAUziel ar2 Yanna Ibanez The chart was reviewed and I authenticate all verbal orders and agree with the evaluation and treatment provided.Attachments: 15:46 T-Sheet-- Draft Copy klr 16:53 [facility] Payment Agreement gb Chart Complete MTDD
== END 2016-08-13 13:02 | disposition home or self-care (01) ==
LOC: M ED 11:01
DX: J03.00 Acute streptococcal tonsillitis, unspecified (principal); Z79.1 Long term (current) use of non-steroidal anti-inflammatories (NSAID)
CPT/HCPCS: 36415; 80048; 85025; 87880; 96361; 96365; 99284; J0690

== ENCOUNTER → 2018-03-14 | Outpatient (CLI) | payer OTHER | LOC: M RAD 06:44 | DX: O36.80X0 Pregnancy with inconclusive fetal viability, not applicable or unspecified (principal) ==

== ENCOUNTER → 2018-05-28 | Outpatient (CLI) | payer OTHER | LOC: M RAD 08:57 | DX: Z36.89 Encounter for other specified antenatal screening (principal); Z3A.20 20 weeks gestation of pregnancy | CPT/HCPCS: 76811 ==

== ENCOUNTER → 2018-09-21 | Outpatient (REF) | payer MEDICAID | LOC: M LAB REF 13:18 | PROVIDERS: ATTEND Obstetrics & Gynecology | DX: Z34.83 Encounter for supervision of other normal pregnancy, third trimester (principal) ==

== ENCOUNTER → 2019-05-22 | Outpatient (REF) | payer OTHER ==
[2019-05-22 22:16] LABS: CHLAMYDIA DNA AMPLIFICATION POSITIVE (NEGATIVE); GC DNA AMPLIFICATION NEGATIVE (NEGATIVE)
== END ==
LOC: M SFHCLERA 12:55
PROVIDERS: ATTEND Physician Assistant
DX: N89.8 Other specified noninflammatory disorders of vagina (principal)

== ENCOUNTER → 2019-07-25 | Outpatient (REF) | payer OTHER ==
[2019-07-25 22:41] LABS: CHLAMYDIA DNA AMPLIFICATION NEGATIVE (NEGATIVE); GC DNA AMPLIFICATION NEGATIVE (NEGATIVE)
== END ==
LOC: M SFHCLERA 15:12
PROVIDERS: ATTEND Nurse Practitioner Family
DX: N89.8 Other specified noninflammatory disorders of vagina (principal)

== ENCOUNTER → 2020-07-01 | Outpatient (REF) | payer OTHER, MEDICAID ==
[2020-07-01 16:45] LABS: HEMATOCRIT 38.8 % (36.0-47.0); HEMOGLOBIN 12.7 g/dl (12.0-15.5); MEAN CORPUSCULAR HEMOGLOBIN 29.1 pg (27.0-33.0); MEAN CORPUSCULAR HGB CONC 32.7 g/dl (32.0-36.5); MEAN CORPUSCULAR VOLUME 88.8 fl (80.0-96.0); PLATELET COUNT, AUTOMATED 286 10^3/uL (150-450); RED BLOOD COUNT 4.37 10^6/uL (4.00-5.40); WHITE BLOOD COUNT 6.6 10^3/uL (4.0-10.0)
[2020-07-01 18:09] LABS: HCG, SERUM QUANTITATIVE 28263 MIU/ML; HEPATITIS B SURFACE ANTIGEN NEGATIVE (NEGATIVE); HEPATITIS C VIRUS ABY INDEX 0.1 INDEX (<0.8); HIV 1&2 SCREEN CENTAUR NEGATIVE (NEGATIVE)
== END ==
LOC: M LAB REF 16:22
PROVIDERS: ATTEND Obstetrics & Gynecology
DX: Z32.01 Encounter for pregnancy test, result positive (principal)

== ENCOUNTER → 2020-07-16 | Outpatient (CLI) | payer OTHER ==
--- NOTE | 2020-07-17 06:33 | REP ---
INDICATION: DATING AND VIABILITY COMPARISON: None. TECHNIQUE: Transabdominal obstetrical ultrasound with color Doppler evaluation. FINDINGS: Examination demonstrates a single live intrauterine in variable presentation. motion is identified by technologist. Placenta is noted anterior and grade 1 without evidence for placenta previa or abruption. Amniotic fluid volume is normal. Cervix measures 4.3 cm in length and appears closed.. Gestational age by current measurements 16 weeks 4 days with ALISIA 12/27/2020. FHR equals 153 beats per minute. IMPRESSION: Single live intrauterine measuring at 16 weeks 4 days gestational age. Complete anatomical assessment should be performed at 19-20 weeks. <Electronically signed by Axel Ramon > 07/17/20 [id number]
== END ==
LOC: M WHC 10:48
PROVIDERS: ATTEND Obstetrics & Gynecology
DX: Z36.9 Encounter for antenatal screening, unspecified (principal); Z3A.16 16 weeks gestation of pregnancy

== ENCOUNTER → 2020-09-04 | Outpatient (CLI) | payer OTHER ==
--- NOTE | 2020-09-04 10:26 | REP ---
INDICATION: ANATOMY COMPARISON: 07/16/2020 TECHNIQUE: Transabdominal obstetrical ultrasound with color Doppler evaluation. FINDINGS: Examination demonstrates a single live intrauterine in breech presentation. motion is identified by technologist. Placenta is noted anterior and grade 0 without evidence for placenta previa or abruption. Amniotic fluid volume is normal. Cervix measures 3.5 cm in length and appears closed.. Gestational age by 1st ultrasound 23 weeks 5 days with ALISIA 12/27/2020. Gestational age by current measurements 23 weeks 1 day with ALISIA 12/31/2020. FHR equals 130 beats per minute. BPD: 5.2 cm at there is 21 weeks 5 days HC: Is 20.7 cm at 22 weeks 6 days AC: 18.3 cm at 23 weeks 1 day FL: 4.3 cm at 24 weeks 0 days HL: 3.9 cm at 23 weeks 6 days HC/AC: 1.13 Estimated weight 590 grams (44thpercentile). Anatomical assessment demonstrates normal structures including cranium, choroid plexus, cavum, cerebellum/posterior fossa, facial features, lungs, four-chamber heart/ventricular outflow tracts, diaphragm, stomach, cord insertion/three-vessel cord, kidneys/bladder, spine, and extremities. IMPRESSION: Single live intrauterine in breech presentation demonstrating appropriate estimated weight. Anatomical assessment is complete and normal. <Electronically signed by Axel Ramon > 09/04/20 1023
== END ==
LOC: M WHC 08:02
PROVIDERS: ATTEND Obstetrics & Gynecology
DX: Z34.92 Encounter for supervision of normal pregnancy, unspecified, second trimester (principal)

== ENCOUNTER → 2020-09-25 | Outpatient (CLI) | payer OTHER ==
[2020-09-25 11:53] LABS: HEMATOCRIT 34.7 % (36.0-47.0); HEMOGLOBIN 11.9 g/dl (12.0-15.5); MEAN CORPUSCULAR HEMOGLOBIN 31.2 pg (27.0-33.0); MEAN CORPUSCULAR HGB CONC 34.3 g/dl (32.0-36.5); MEAN CORPUSCULAR VOLUME 91.1 fl (80.0-96.0); PLATELET COUNT, AUTOMATED 285 10^3/uL (150-450); RED BLOOD COUNT 3.81 10^6/uL (4.00-5.40); WHITE BLOOD COUNT 7.9 10^3/uL (4.0-10.0)
== END ==
LOC: M LAB 09:19
PROVIDERS: ATTEND Advanced Practice Midwife
DX: Z34.82 Encounter for supervision of other normal pregnancy, second trimester (principal); Z3A.00 Weeks of gestation of pregnancy not specified

== ENCOUNTER 2020-10-14 21:48 | Outpatient (CLI) | payer OTHER ==
[~2020-10-14] VITALS: Ht 162.6 cm; Wt 93.8 kg
[2020-10-14 22:12] VITALS: BP 127/60
[2020-10-14] MEDS ORDERED: LACTATED RINGER'S 1000 ML IV ONE (22:35)
[2020-10-14] MEDS ORDERED: PRENTAB9 PO (22:37)
[2020-10-14] MEDS ORDERED: MORPHINE 4 MG/ML 1ML VIAL/SYRINGE (J2270) IV ONE (22:40)
[2020-10-14 23:03] VITALS: BP 94/57
[2020-10-14 23:04] LABS: HEMATOCRIT 34.5 % (36.0-47.0); HEMOGLOBIN 11.4 g/dl (12.0-15.5); MEAN CORPUSCULAR HEMOGLOBIN 30.3 pg (27.0-33.0); MEAN CORPUSCULAR VOLUME 91.8 fl (80.0-96.0); PLATELET COUNT, AUTOMATED 261 10^3/uL (150-450); RED BLOOD COUNT 3.76 10^6/uL (4.00-5.40); WHITE BLOOD COUNT 10.3 10^3/uL (4.0-10.0)
[2020-10-14 23:31] LABS: BLOOD UREA NITROGEN 9 MG/DL (7-18); CALCIUM LEVEL 8.5 MG/DL (8.5-10.1); CARBON DIOXIDE LEVEL 25 MEQ/L (21-32); CHLORIDE LEVEL 108 MEQ/L (98-107); CREATININE FOR GFR 0.51 MG/DL (0.55-1.30); GLOMERULAR FILTRATION RATE > 60.0 (>60); GLUCOSE, FASTING 84 MG/DL (70-100); SODIUM LEVEL 140 MEQ/L (136-145)
[2020-10-14 23:32] LABS: ALBUMIN 2.5 GM/DL (3.2-5.2); ALT/SGPT 14 U/L (12-78); BILIRUBIN,TOTAL 0.2 MG/DL (0.2-1.0); PHOSPHORUS LEVEL 3.1 MG/DL (2.5-4.9); TOTAL PROTEIN 5.8 GM/DL (6.4-8.2)
[2020-10-14 23:56] VITALS: BP 120/67
--- NOTE | 2020-10-15 00:05 | REPVR ---
PROCEDURE INFORMATION: Exam: US Retroperitoneal Limited, Kidneys Exam date and time: 10/14/2020 11:37 PM Age: 25 years old Clinical indication: Other: Flank pain; ; Additional info: Left flank pain TECHNIQUE: Imaging protocol: Real-time ultrasound of the retroperitoneum with image documentation. Examination was focused on the kidneys. COMPARISON: No relevant prior studies available. FINDINGS: Right kidney: The right kidney measures 11.3 cm in its cephalocaudad dimension and 6.1 x 6.1 cm in diameter. No mass, cyst or hydronephrosis. Left kidney: The left kidney measures 12.8 cm in its cephalocaudad dimension and 5.6 x 5.5 cm in diameter. There is minimal left hydronephrosis. No mass or cyst. Uterus: Intrauterine fetus with heartbeat of 128 bpm. IMPRESSION: 1. Single live intrauterine fetus. 2. Minimal left hydronephrosis. 3. Otherwise negative renal sonogram. Electronically signed by: Arnoldo Shields On 10/15/2020 00:05:39 AM
[2020-10-15 00:24] LABS: CHLAMYDIA DNA AMPLIFICATION NEGATIVE (NEGATIVE); GC DNA AMPLIFICATION NEGATIVE (NEGATIVE)
[2020-10-15 00:58] LABS: APPEARANCE, URINE CLEAR (CLEAR); BACTERIA, URINE AUTO NEGATIVE (NEGATIVE); BILIRUBIN, URINE AUTO NEGATIVE (NEGATIVE); BLOOD, URINE BLOOD 3+ (NEGATIVE); COLOR, URINE STRAW (YELLOW); GLUCOSE, URINE (UA) AUTO NEGATIVE (NEGATIVE); KETONE, URINE AUTO NEGATIVE (NEGATIVE); LEUKOCYTE ESTERASE, URINE AUTO NEGATIVE (NEGATIVE); MUCUS, URINE SMALL (NEGATIVE); NITRITE, URINE AUTO NEGATIVE (NEGATIVE); PROTEIN, URINE AUTO NEGATIVE (NEGATIVE); RBC, URINE AUTO 103 /HPF (0-3); SPECIFIC GRAVITY URINE AUTO 1.008 (1.002-1.035); SQUAMOUS EPITHELIAL CELL UR AU 1 /HPF (0-6); UROBILINOGEN, URINE AUTO 0.2 mg/dL (0.0-2.0); WBC, URINE AUTO 2 /HPF (0-3)
[2020-10-15 01:07] VITALS: BP 115/55
[2020-10-15 05:01] VITALS: BP 112/59
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
[2020-10-15 06:47] VITALS: BP 98/53
[2020-10-15 07:23] VITALS: BP 118/70
== END 2020-10-15 07:30 | disposition home or self-care (01) ==
LOC: M LDO 21:48
PROVIDERS: ATTEND Advanced Practice Midwife
DX: O26.893 Other specified pregnancy related conditions, third trimester (principal); R10.9 Unspecified abdominal pain; Z3A.29 29 weeks gestation of pregnancy; Z87.891 Personal history of nicotine dependence
CPT/HCPCS: 36415; 76775; 80053; 81001; 85027; 87086; 87491; 87591; J2270

== ENCOUNTER → 2020-10-27 | Outpatient (REF) | payer OTHER, MEDICAID ==
[~2020-10-27] MED LIST: PRENTAB9 PO
[2020-10-27 12:40] LABS: BACTERIA, URINE AUTO 1+ (NEGATIVE); RBC, URINE AUTO 0 /HPF (0-3); SQUAMOUS EPITHELIAL CELL UR AU 2 /HPF (0-6); WBC, URINE AUTO 1 /HPF (0-3)
== END ==
LOC: M LAB REF 12:14
PROVIDERS: ATTEND Advanced Practice Midwife
DX: O23.42 Unspecified infection of urinary tract in pregnancy, second trimester (principal)

== ENCOUNTER → 2020-11-17 | Outpatient (REF) | payer OTHER, MEDICAID | LOC: M LAB REF 12:06 | PROVIDERS: ATTEND Advanced Practice Midwife | DX: Z34.83 Encounter for supervision of other normal pregnancy, third trimester (principal) ==

== ENCOUNTER → 2021-05-04 | Outpatient (REF) | payer OTHER, MEDICAID | LOC: M LAB REF 16:59 | PROVIDERS: ATTEND Advanced Practice Midwife | DX: R30.0 Dysuria (principal) ==